=== PATIENT | male | born 1950 | race Caucasian/White ===

== ENCOUNTER → 2018-07-23 | Day surgery (SDC) | payer OTHER ==
[2018-07-22 17:16] LABS: BASOPHILS % 0.3 % (0.0-1.0); EOSINOPHILS # (AUTO) 0.1 (0.0-0.4); EOSINOPHILS % 1.8 % (0.0-6.0); HEMATOCRIT 40.9 % (38.2-49.6); HEMOGLOBIN 14.5 g/dL (14.0-18.0); LYMPHOCYTES # (AUTO) 1.7 (1.0-3.2); LYMPHOCYTES % 21.4 % (18.0-39.1); MEAN CORPUSCULAR HEMOGLOBIN 32.3 pg (28-32); MEAN CORPUSCULAR HGB CONC 35.5 g/dL (31-35); MEAN CORPUSCULAR VOLUME 91.1 fL (81-99); MONOCYTES # (AUTO) 0.7 (0.2-0.8); MONOCYTES % 9.2 % (4.4-11.3); NEUTROPHILS # (AUTO) 5.2 (2.1-6.9); NEUTROPHILS % 66.9 % (38.7-80.0); PLATELET COUNT 168 x10e3/uL (140-360); RED BLOOD COUNT 4.49 x10e6/uL (4.3-5.7); RED CELL DISTRIBUTION WIDTH 12.8 % (11.7-14.4)
[2018-07-22 17:28] LABS: INR 1.02; PROTHROMBIN TIME 14.3 seconds (11.9-14.5)
[2018-07-22 17:38] LABS: ALBUMIN 4.1 g/dL (3.5-5.0); ALBUMIN/GLOBULIN RATIO 1.2 (0.8-2.0); ANION GAP 15.8 mmol/L (8-16); CALCIUM 9.9 mg/dL (8.4-10.2); CHOL/HDL RATIO 5.5 (3.9-4.7); CREATININE, SERUM 2.28 mg/dL (0.72-1.25); POTASSIUM 3.8 mmol/L (3.5-5.1)
[2018-07-23] VITALS (8 sets, daily range): BP systolic 107–124; BP diastolic 59–78
[~2018-07-23] VITALS: Ht 172.7 cm; Wt 72.6 kg
[~2018-07-23] MED LIST: ALPRAZOLAM 0.5 MG TAB ONE; ANDROGEL 1.62% TOP; ATORVASTATIN CA20 MG PO; DIGOXIN125 MCG PO; DIPHENHYDRAMINE HCL 25 MG CAP ONE; FENTANYL CITRATE/PF 100MCG/2 ML INJ ONE; GLIMEPIRIDE2 MG PO; HEPARIN SOD (PORCINE) 1000 UNIT/ML 30ML ONE; HEPARIN SOD/SOD CHLORIDE 2,000 ML ONE; IOPAMIDOL 370 MG/ML 200 ML INFUS..BTL INJ ONE; IRON PO; LEVOTHYROXINE50 MCG PO; LIDOCAINE HCL 2% LOCAL 20 ML VIAL ONE; METOPROLOL SUCC25 MG PO; MIDAZOLAM HCL 2 MG/2 ML VIAL ONE; NIACIN500 M2 PO; NITROGLYCERIN/D5W 200 MCG/ML 250 ML ONE; OMEGA-31000 MG; OMEGA-31000 MG PO; POTASSIUM CHLO10 ME1 PO; SAVAYSA PO; SODIUM CHLORIDE 0.9% 1000ML 1,000 ML ONE; TORSEMIDE10 MG PO; VERAPAMIL HCL 2.5 MG/ML 2 ML VIAL ONE
--- NOTE | 2018-07-25 13:30 | Operative Report ---
DATE OF PROCEDURE: July 23, 2018 INDICATIONS: Coronary artery disease, abnormal stress test with apical ischemia. PROCEDURES PERFORMED 1. Left heart catheterization, selective coronary angiography. 2. Deployment of right groin Mynx closure device. COMPLICATIONS: None. RECOMMENDATIONS: Medical therapy. Access was obtained in the right femoral artery. A 6-Portuguese sheath was placed. Diagnostic coronary angiogram revealed codominant right coronary artery with minimal coronary artery disease in all coronary systems, between 10% and 20% luminal stenosis. No critical stenosis or occlusions were noted. Right groin was repaired using Mynx closure device. Patient discharged home same day. Job#: [id number]
== END | disposition home or self-care (01) ==
LOC: CATH LAB 09:39
PROVIDERS: ATTEND Internal Medicine Interventional Cardiology
DX: I25.118 Atherosclerotic heart disease of native coronary artery with other forms of angina pectoris (principal); R94.39 Abnormal result of other cardiovascular function study; I48.1 Persistent atrial fibrillation; Q21.3 Tetralogy of Fallot; E11.9 Type 2 diabetes mellitus without complications; E78.5 Hyperlipidemia, unspecified; Z01.812 Encounter for preprocedural laboratory examination; Z79.84 Long term (current) use of oral hypoglycemic drugs; Z86.19 Personal history of other infectious and parasitic diseases
CPT/HCPCS: 36415; 80053; 80061; 85025; 85610; 93454; C1769; J1644; J2001; J2250; J7030; Q9967

== ENCOUNTER 2019-12-06 17:10 | Inpatient (IN) | payer OTHER, MEDICARE ==
[~2019-12-06] VITALS: Ht 172.7 cm; Wt 66.8 kg
[~2019-12-06 17:10] MED LIST changes: -ALPRAZOLAM 0.5 MG TAB ONE; -DIPHENHYDRAMINE HCL 25 MG CAP ONE; -FENTANYL CITRATE/PF 100MCG/2 ML INJ ONE; -HEPARIN SOD (PORCINE) 1000 UNIT/ML 30ML ONE; -HEPARIN SOD/SOD CHLORIDE 2,000 ML ONE; -IOPAMIDOL 370 MG/ML 200 ML INFUS..BTL INJ ONE; -LIDOCAINE HCL 2% LOCAL 20 ML VIAL ONE; -MIDAZOLAM HCL 2 MG/2 ML VIAL ONE; -NITROGLYCERIN/D5W 200 MCG/ML 250 ML ONE; -SODIUM CHLORIDE 0.9% 1000ML 1,000 ML ONE; -VERAPAMIL HCL 2.5 MG/ML 2 ML VIAL ONE
[2019-12-06] MEDS ORDERED: SODIUM CHLORIDE 0.9% 500ML 500 ML IV ONE (18:45)
[2019-12-06 19:07] LABS: BASOPHILS % 0.3 % (0.0-1.0); EOSINOPHILS # (AUTO) 0.2 (0.0-0.4); EOSINOPHILS % 2.7 % (0.0-6.0); HEMATOCRIT 38.8 % (38.2-49.6); HEMOGLOBIN 12.6 g/dL (14.0-18.0); LYMPHOCYTES # (AUTO) 0.9 (1.0-3.2); LYMPHOCYTES % 12.4 % (18.0-39.1); MEAN CORPUSCULAR HEMOGLOBIN 30.5 pg (28-32); MEAN CORPUSCULAR HGB CONC 32.5 g/dL (31-35); MEAN CORPUSCULAR VOLUME 93.9 fL (81-99); MONOCYTES # (AUTO) 0.7 (0.2-0.8); MONOCYTES % 9.5 % (4.4-11.3); NEUTROPHILS # (AUTO) 5.2 (2.1-6.9); NEUTROPHILS % 74.7 % (38.7-80.0); PLATELET COUNT 158 x10e3/uL (140-360); RED BLOOD COUNT 4.13 x10e6/uL (4.3-5.7); RED CELL DISTRIBUTION WIDTH 13.5 % (11.7-14.4)
[2019-12-06 19:21] LABS: ALBUMIN 3.5 g/dL (3.5-5.0); ANION GAP 15.8 mmol/L (8-16); CALCIUM 9.5 mg/dL (8.4-10.2); CREATININE, SERUM 2.06 mg/dL (0.72-1.25); POTASSIUM 3.8 mmol/L (3.5-5.1)
[2019-12-06 19:28] LABS: CREATINE KINASE MB 2.4 ng/mL (0-5.0)
--- NOTE | 2019-12-06 19:34 | Diagnostic Imaging Report ---
Examination: Single AP view of the chest. COMPARISON: Multi lead cardiac device. INDICATION: Dyspnea DISCUSSION: Lines/tubes: None. Lungs: Interstitial edema. Pleura: No pleural effusion or pneumothorax. Heart and mediastinum: Cardiomegaly. Vascular stent. Bones and soft tissues: No acute bony abnormalities. IMPRESSION: 1. Cardiomegaly with interstitial edema Signed by: Dr. Micheal Phillips M.D. on 12/06/2019 7:32 PM
[2019-12-06] MEDS ORDERED: SODIUM CHLORIDE FLUSH 10 ML SYR INJ PRN (20:00)
[2019-12-06] MEDS ORDERED: DEXTROSE 50% SYRINGE 50 ML IV PRN (20:00)
--- OUTSIDE RECORDS SUMMARY | 2019-12-06 20:28 | XMS REPORT ---
Author Author [facility] Address Unknown Phone Unavailable Care Team Providers Care Stewarding Supervisor Name Role Phone Johny ALLISON Unavailable Unavailable Problems This patient has no known problems. Allergies, Adverse Reactions, Alerts This patient has no known allergies or adverse reactions. Medications This patient has no known medications. Results Test Description Test Time Test Comments Text Results Atomic Results Result Comments CHEST SINGLE (PORTABLE) 2019-12-06 19:31:00 [place] [address] Patient Name: MICKY CHAPPELL MR #: [id number] : 1950 Age/Sex: 69/M Req #: [id number] Adm Physician: Ordered by: LANDY ALLISON MD Report #: [id number] Location: ER Room/Bed: Procedure: [id number] DX/CHEST SINGLE (PORTABLE) Exam Date: Exam Time: REPORT STATUS: Signed Examination: Single AP view of the chest. COMPARISON: Multi lead cardiac device. INDICATION: Dyspnea DISCUSSION: Lines/tubes: None. Lungs: Interstitial edema. Pleura: No pleural effusion or pneumothorax. Heart and mediastinum: Cardiomegaly. Vascular stent. Bones and soft tissues: No acute bony abnormalities. IMPRESSION: 1. Cardiomegaly with interstitial edema Signed by: Dr. Eric John M.D. on 12/06/2019 7:32 PM Dictated By: ERIC JOHN MD 31 Transcribed By: ROMELIA on 12/06/191931 COPY TO: LANDY ALLISON MD
[2019-12-06 21:30] LABS: INR 1.92; PROTHROMBIN TIME 22.7 seconds (11.9-14.5)
[2019-12-06 21:31] LABS: PARTIAL THROMBOPLASTIN TIME 42.4 seconds (23.8-35.5)
[2019-12-06] MEDS: INSULIN REGULAR, HUMAN 100 UNIT/1 ML 3ML VIAL SQ SCH (22:03)
[2019-12-06] MEDS: FUROSEMIDE INJ 10 MG/ML 4 ML VIAL IV SCH ×2 (22:12→22:27)
[2019-12-07 08:02] LABS: BASOPHILS % 0.5 % (0.0-1.0); EOSINOPHILS # (AUTO) 0.3 (0.0-0.4); EOSINOPHILS % 2.9 % (0.0-6.0); HEMATOCRIT 39.2 % (38.2-49.6); HEMOGLOBIN 12.9 g/dL (14.0-18.0); LYMPHOCYTES # (AUTO) 1.6 (1.0-3.2); MEAN CORPUSCULAR HEMOGLOBIN 30.4 pg (28-32); MEAN CORPUSCULAR HGB CONC 32.9 g/dL (31-35); MEAN CORPUSCULAR VOLUME 92.2 fL (81-99); MONOCYTES # (AUTO) 0.9 (0.2-0.8); MONOCYTES % 10.8 % (4.4-11.3); NEUTROPHILS # (AUTO) 5.8 (2.1-6.9); NEUTROPHILS % 67.3 % (38.7-80.0); PLATELET COUNT 160 x10e3/uL (140-360); RED BLOOD COUNT 4.25 x10e6/uL (4.3-5.7); RED CELL DISTRIBUTION WIDTH 13.7 % (11.7-14.4)
[2019-12-07] MEDS: INSULIN REGULAR, HUMAN 100 UNIT/1 ML 3ML VIAL SQ SCH ×4 (08:07→21:00)
[2019-12-07 08:27] LABS: CREATINE KINASE MB 2.7 ng/mL (0-5.0)
[2019-12-07 08:45] LABS: ALBUMIN 3.6 g/dL (3.5-5.0); ANION GAP 19.1 mmol/L (8-16); CALCIUM 9.6 mg/dL (8.4-10.2); POTASSIUM 3.1 mmol/L (3.5-5.1)
[2019-12-07] MEDS: FUROSEMIDE INJ 10 MG/ML 4 ML VIAL IV SCH (09:42)
[2019-12-07 13:10] VITALS: BP 114/70
[2019-12-07 13:24] VITALS: BP 114/70
[2019-12-07] MEDS ORDERED: TRULICITY0.75 MG/0. SQ (13:48)
[2019-12-07] MEDS ORDERED: ONE DAILY MEN'1 EACH PO (13:48)
[2019-12-07 16:00] VITALS: BP 111/70
[2019-12-07] MEDS ORDERED: POTASSIUM CHLORIDE 10MEQ EA PO NR (16:30)
[2019-12-07 17:17] LABS: CREATINE KINASE MB 2.9 ng/mL (0-5.0)
--- NOTE | 2019-12-07 18:34 | Diagnostic Imaging Report ---
EXAMINATION: CHEST SINGLE (PORTABLE) INDICATION: Fluid overload ^PULM EDEMA ^[id number] ^[id number] COMPARISON: December 06, 2019 FINDINGS: Lines/tubes: None. Lungs: Interstitial edema. Pleura: No pleural effusion or pneumothorax. Heart and mediastinum: Cardiomegaly. Vascular stent. Left chest cardiac device. Bones and soft tissues: No acute bony abnormalities. Degenerative changes in the thoracic spine. IMPRESSION: 1. Cardiomegaly with interstitial edema essentially unchanged. Signed by: Dr. Cody Alvarado M.D. on 12/07/2019 6:31 PM
[2019-12-07 20:00] VITALS: BP 112/71
[2019-12-07] MEDS ORDERED: FUROSEMIDE INJ 10 MG/ML 4 ML VIAL IV SCH (21:00)
[2019-12-07] MEDS ORDERED: TORSEMIDE 10 MG TAB PO SCH (21:00)
--- NOTE | 2019-12-07 23:57 | History and Physical ---
PRIMARY CARE PHYSICIAN: Dr. Lorenz. CAREER DEVELOPER: Dr. Murdock. CHIEF COMPLAINT: Shortness of breath and generalized weakness x2 weeks. HISTORY OF PRESENT ILLNESS: This is a 69-year-old male with past medical history of chronic systolic CHF, CAD, atrial fibrillation, tetralogy, high cholesterol, diabetes type 2, CKD 3, and hypothyroidism presented to the ER with complaints of shortness of breath. He reports he has been taking his medications as prescribed, but has noticed that in the past month or so he has been feeling short of breath, increasing in severity. He reported having mild dry cough and increased shortness of breath that started a week ago. He denies any fever, chills, diaphoresis, chest pain, hemoptysis. He has no bilateral lower extremity swelling, but has some wheezing and crackles in the lower bases of his lungs. He went to his PCP and was instructed to come to the ER for further evaluation. In the ER, BNP was 664. Cardiac enzymes negative. Chest x-ray shows cardiomegaly with interstitial edema. He was started on IV Lasix, which seems to be helping. PAST MEDICAL HISTORY: 1. Systolic congestive heart failure with defibrillator in place. 2. CAD. 3. Atrial fibrillation. 4. High cholesterol. 5. Hypothyroidism. 6. Diabetes type 2. 7. CKD 3. SURGICAL HISTORY: 1. He has had a tetralogy repair at the age of 33 years old. 2. Bypass surgery. 3. Ablation in 2009. 4. Cholecystectomy. 5. Tonsillectomy. FAMILY MEDICAL HISTORY: Both mother and father of lung cancer, reports mother also has diabetes. SOCIAL HISTORY: He denies any tobacco, alcohol, or illicit drug use. ALLERGIES: NO KNOWN DRUG ALLERGIES. REVIEW OF SYSTEMS: GENERAL: Fatigue. HEENT: No head trauma. LUNGS: Shortness of breath and dry cough. CARDIOVASCULAR: No chest pain. GI: No nausea or vomiting. NEURO: Generalized weakness. MUSCULOSKELETAL: Moves all extremities. No edema. SKIN: No rash. PHYSICAL EXAMINATION: VITAL SIGNS: Temperature 97.2, pulse is 70, respirations 20, blood pressure 111/70, pulse ox is 96% on room air. GENERAL: No acute distress, fatigue. HEENT: Normocephalic, atraumatic. NECK: Supple. LUNGS: Clear with decreased breath sounds and some crackles. CARDIOVASCULAR: Regular rate and rhythm. Defibrillator in place. GI: Soft and nontender. NEUROLOGIC: Alert, awake, and oriented x3. MUSCULOSKELETAL: Moves all extremities. SKIN: Dry. EXTREMITIES: No edema. Palpable pulses. PSYCH: Calm. LABORATORY DATA: WBC 8.67, hemoglobin 12.9, hematocrit 39.2, platelets 160. Sodium 143, potassium 3.1, CO2 of 26, anion gap 19.1. BUN is 26, creatinine 2.0. Estimated GFR is 33. AST 28, ALT 26, alkaline phosphate 244. Troponin x3 negative. BNP is 664. PT 22.7, INR 1.92, PTT 42.4. IMAGING: Chest x-ray shows cardiomegaly with interstitial edema. IMPRESSION: 1. Systolic congestive heart failure with exacerbation, acute with troponin x3 were negative, resume home medication, Lasix IV b.i.d. Echo has been ordered. We will consult Cardiology. 2. History of atrial fibrillation, rate controlled, continue current medications. Reports takes Savaysa for cerebrovascular accident prophylaxis. 3. High cholesterol. Continue on statin. 4. Hypokalemia. We will replace and recheck. 5. Diabetes type 2. Sliding scale insulin coverage. 6. Chronic kidney disease 3. Creatinine 2.0. We will continue to monitor closely. 7. Hypothyroidism. We will resume home levothyroxine. 8. Deep venous thrombosis prophylaxis. We will start Lovenox. PLAN: To continue current treatments. Continue IV Lasix and repeat chest x-ray. Further recommendation per Cardiology. Dictated by ARLYN Cardenas Jeniffer Retana MD MY/MODL /[id number]
[2019-12-08] VITALS (7 sets, daily range): BP systolic 108–140; BP diastolic 64–73
[2019-12-08] MEDS: LEVOTHYROXINE SODIUM 50 MCG TAB PO SCH (06:00)
[2019-12-08] MEDS: FUROSEMIDE INJ 10 MG/ML 4 ML VIAL IV SCH ×3 (06:00→22:00)
[2019-12-08] MEDS: INSULIN REGULAR, HUMAN 100 UNIT/1 ML 3ML VIAL SQ SCH ×4 (07:30→21:00)
[2019-12-08] MEDS: OMEGA 3 POLYUNSAT FATTY ACIDS 1000 MG SOFTGEL PO SCH (08:59)
[2019-12-08] MEDS: POTASSIUM CHLORIDE 10MEQ EA PO SCH ×2 (09:00→16:35)
[2019-12-08] MEDS ORDERED: SAVAYSA 30 MG PO SCH (09:00)
[2019-12-08] MEDS: METOPROLOL SUCCINATE 25 MG TAB XL PO SCH (09:00)
[2019-12-08] MEDS ORDERED: ENOXAPARIN SOD INJ 40 MG/0.4 ML SYR SC SCH (09:00)
[2019-12-08] MEDS: ATORVASTATIN 20 MG TAB PO SCH (09:00)
--- NOTE | 2019-12-08 18:31 | Progress Note ---
DATE: 12/08/2019 CONSULTING PHYSICIAN: Dr. Lizama with Cardiology. CHIEF COMPLAINT: Congestive heart failure exacerbation. SUBJECTIVE: Sitting up in bed with O2 via nasal cannula. Reports shortness of breath is improving some, still having to sleep in high Espinoza's position. Reports nonproductive cough throughout the night. OBJECTIVE: VITAL SIGNS: Temperature 97.0, pulse is 75, blood pressure 140/67, respirations 20, and O2 saturations 93%. GENERAL: No acute distress. NECK: Supple. LUNGS: Decreased breath sounds with some crackles. HEENT: Normocephalic and atraumatic. CARDIOVASCULAR: Regular rate and rhythm. ABDOMEN: Soft and nontender. EXTREMITIES: Moves all extremities. No edema. NEUROLOGIC: Alert, awake, and oriented x3. LABORATORY DATA: Sodium 143, potassium 3.1, chloride 101, CO2 26, creatinine 2.0, and BUN is 26. White count is 8.67, hemoglobin 12.9, hematocrit 39.2, and platelet 160. PT 22, PTT 42, and INR 1.91. IMPRESSION: 1. Acute systolic congestive heart failure with exacerbation. Troponin x3 were negative, we will increase Lasix to IV t.i.d. Pending echo. Cardiology has been consulted. 2. History of atrial fibrillation. Rate is controlled. We will continue on beta blockers and Savaysa for cerebrovascular accident prophylaxis. 3. Hypokalemia. We will replace. 4. High cholesterol. Continue on statin. 5. Diabetes type 2. Sliding scale insulin coverage. 6. Chronic kidney disease, 3. Stable. We will continue to monitor. 7. Hypothyroidism. We will continue levothyroxine. 8. Deep vein thrombosis prophylaxis on Savaysa. PLAN: To continue IV Lasix t.i.d., we will repeat labs and chest x-ray in the morning. Dictated by ARLYN Cardenas Jeniffer Retana MD MY/MODL /[id number]
--- NOTE | 2019-12-08 18:46 | Consultation ---
DATE OF CONSULTATION: 12/08/2019 Cardiology Consultation HISTORY OF PRESENT ILLNESS: This is a 69-year-old man with a history of atrial fibrillation, chronic systolic congestive heart failure status post implantable cardioverter-defibrillator, hypertension, and hyperlipidemia, who presented to the emergency department with palpitations and shortness of breath. He reports compliance with his diuretics, however, states that his primary care provider has noted his atrial fibrillation to be poorly controlled. The patient cannot provide me the exact details of his presenting symptoms or his past medical history. He was noted to be in congestive heart failure and initiated on intravenous diuretics. REVIEW OF SYSTEMS: A 12-point review of system was conducted, is negative except as stated above in the HPI. PAST MEDICAL HISTORY: As stated above in the HPI. PAST SURGICAL HISTORY: Implantable cardioverter-defibrillator placement. FAMILY HISTORY: Noncontributory. SOCIAL HISTORY: No illicit drug, alcohol, or tobacco use. ALLERGIES: NO KNOWN DRUG ALLERGIES. MEDICATIONS: See medication reconciliation form. PHYSICAL EXAMINATION: VITAL SIGNS: He is afebrile. Heart rate and blood pressure are stable. Oxygen saturation is normal on 2 L nasal cannula. GENERAL: Well-appearing, well built, in no apparent distress. Alert and oriented x3. HEAD: Normocephalic and atraumatic. EYES: The extraocular muscles are intact. Conjunctivae are clear. NECK: No JVD. No bruits. CARDIOVASCULAR: He is irregularly irregular. Normal rate. Systolic murmur at the left sternal border. LUNGS: Clear to auscultation. ABDOMEN: Soft, nontender, and nondistended. EXTREMITIES: No clubbing, cyanosis, or edema. VASCULAR: 2+ pulses. SKIN: Warm, dry, and intact. LABORATORY DATA: Reviewed. IMPRESSION: 1. Ayzcj-nn-ktfjjdq systolic congestive heart failure. 2. Presence of cardioverter-defibrillator. 3. Atrial fibrillation. 4. Hypertension. RECOMMENDATIONS: Continue current cardiovascular medications including intravenous diuresis. He is on edoxaban for anticoagulation. Maintain normal electrolyte values. Monitor creatinine and urinary output on IV diuretics. We will have his implantable cardioverter-defibrillator interrogated, which is a [employer] device. Eusebio Richardson DO BM/MODL /[id number]
[2019-12-09] VITALS: BP 121/58
[2019-12-09 04:00] VITALS: BP 122/57
[2019-12-09 05:10] LABS: BASOPHILS % 0.5 % (0.0-1.0); EOSINOPHILS # (AUTO) 0.3 (0.0-0.4); EOSINOPHILS % 3.5 % (0.0-6.0); HEMATOCRIT 36.8 % (38.2-49.6); HEMOGLOBIN 11.8 g/dL (14.0-18.0); LYMPHOCYTES # (AUTO) 1.6 (1.0-3.2); LYMPHOCYTES % 20.7 % (18.0-39.1); MEAN CORPUSCULAR HGB CONC 32.1 g/dL (31-35); MEAN CORPUSCULAR VOLUME 93.6 fL (81-99); MONOCYTES # (AUTO) 0.7 (0.2-0.8); MONOCYTES % 9.8 % (4.4-11.3); NEUTROPHILS # (AUTO) 4.9 (2.1-6.9); NEUTROPHILS % 65.2 % (38.7-80.0); PLATELET COUNT 151 x10e3/uL (140-360); RED BLOOD COUNT 3.93 x10e6/uL (4.3-5.7); RED CELL DISTRIBUTION WIDTH 13.1 % (11.7-14.4)
[2019-12-09 05:30] LABS: ANION GAP 16.3 mmol/L (8-16); CREATININE, SERUM 2.01 mg/dL (0.72-1.25); POTASSIUM 3.3 mmol/L (3.5-5.1)
--- NOTE | 2019-12-09 05:53 | Diagnostic Imaging Report ---
EXAMINATION: CHEST SINGLE (PORTABLE) INDICATION: CHF. Pulmonary edema. COMPARISON: December 07, 2019 at 1815 hours. FINDINGS: Lines/tubes: None. Dual-lead left-sided cardiac pacemaker is unchanged in position. Lungs: Bilateral pulmonary venous congestion and interstitial edema. Interval increase in density throughout the chest bilaterally consistent with increasing edema. Pleura: Bilateral small pleural effusions. No pneumothorax. Heart and mediastinum: Cardiomegaly. Vascular stent again observed. Bones and soft tissues: No acute bony abnormalities. Degenerative changes in the thoracic spine. IMPRESSION: 1. Findings consistent with mild increase in findings consistent with decompensated congestive heart failure. Signed by: Dr. Bulmaro Moreau M.D. on 12/09/2019 5:50 AM
[2019-12-09] MEDS: FUROSEMIDE INJ 10 MG/ML 4 ML VIAL IV SCH ×2 (06:00→14:00)
[2019-12-09] MEDS: LEVOTHYROXINE SODIUM 50 MCG TAB PO SCH (06:00)
[2019-12-09] MEDS: INSULIN REGULAR, HUMAN 100 UNIT/1 ML 3ML VIAL SQ SCH ×3 (07:30→16:30)
[2019-12-09 07:49] VITALS: BP 115/55
[2019-12-09 07:51] VITALS: BP 115/55
[2019-12-09] MEDS: POTASSIUM CHLORIDE 10MEQ EA PO SCH ×2 (08:38→16:56)
[2019-12-09] MEDS: OMEGA 3 POLYUNSAT FATTY ACIDS 1000 MG SOFTGEL PO SCH (08:38)
[2019-12-09] MEDS: ATORVASTATIN 20 MG TAB PO SCH (08:38)
[2019-12-09] MEDS: METOPROLOL SUCCINATE 25 MG TAB XL PO SCH (08:39)
[2019-12-09] MEDS ORDERED: POTASSIUM CHLORIDE 10MEQ EA PO ONE (08:45)
[2019-12-09] MEDS ORDERED: SAVAYSA 30 MG PO SCH (09:00)
[2019-12-09 11:41] VITALS: BP 113/60
[2019-12-09 15:16] VITALS: BP 118/61
[2019-12-09] MEDS ORDERED: FUROSEMIDE40 MG PO (15:22)
--- NOTE | 2019-12-09 19:56 | Progress Note ---
DATE: 12/09/2019 Cardiology Progress Note. SUBJECTIVE: The patient feeling better, walked around without significant shortness of breath. No chest pain. OBJECTIVE: VITAL SIGNS: Temperature is 96.8, heart rate 72, respirations are 18, blood pressure is 118/61, oxygen saturation 96% on room air. GENERAL: Well appearing, no apparent distress. CARDIOVASCULAR: Regular rate and rhythm with ectopy. LUNGS: Mildly diminished breath sounds at bases with scattered rales. ABDOMEN: Soft, nontender, nondistended. EXTREMITIES: No edema. CARDIOVASCULAR MEDICATIONS: Reviewed. LABORATORY DATA: Reviewed, hemoglobin 11.8 and creatinine is 2. TELEMETRY: Monitoring revealed ventricular paced rhythm with one premature ventricular complex. This was used for diagnosis of nonsustained ventricular tachycardia. IMPRESSION: 1. Iwsyh-nf-zxdcams systolic congestive heart failure. 2. Presence of implantable cardioverter-defibrillator. 3. Paroxysmal atrial fibrillation. 4. Premature ventricular complexes. 5. Hypertension. RECOMMENDATIONS: Continue current cardiovascular medications. Can switch to oral Lasix 40 mg p.o. b.i.d. He is on edoxaban for anticoagulation. His ICD was interrogated with normal function. The patient may be discharged from a cardiovascular standpoint with outpatient followup. DO DOT Slater/PRISCILLAL /[id number]
--- NOTE | 2019-12-11 04:47 | Discharge Summary ---
PRIMARY CARE PHYSICIAN: Dr. Lorenz. FINAL DIAGNOSES: 1. Acute systolic congestive heart failure with exacerbation. 2. History of atrial fibrillation. 3. Hypokalemia. 4. High cholesterol. 5. Diabetes type 2. 6. Chronic kidney disease, 3. 7. Hypothyroidism. CONSULTANTS: Dr. Lizama with Cardiology. PROCEDURES: None. HISTORY: Per HPI. HOSPITAL COURSE: This is a 69-year-old male with past medical history of chronic systolic congestive heart failure, PAF, hypertension, diabetes, and CKD, presented with increased shortness of breath with exertion and unable to lay flat in bed. He was started on IV Lasix for aggressive diuresis. Chest x-ray showed pulmonary edema. He continued to improve with his shortness of breath. Cardiology was consulted for evaluation. I advised to change the home torsemide to Lasix p.o. b.i.d. Otherwise, dyspnea is much improved. PHYSICAL EXAMINATION: VITAL SIGNS: Temperature 95.1, pulse is 73, respirations 16, blood pressure 113/60, and pulse ox is 96% on room air. GENERAL: In no acute distress. NECK: Supple and midline. LUNGS: With decreased breath sounds. HEENT: Normocephalic, atraumatic. CARDIOVASCULAR: Regular rate and rhythm. ABDOMEN: Soft and nontender. EXTREMITIES: Moves all extremities with no edema. NEUROLOGIC: Alert, awake, oriented x3. SKIN: Dry and intact. CONDITION AT DISCHARGE: Stable and improved. DISCHARGE MEDICATIONS: See medication reconciliation list. FOLLOWUP: Follow up with PCP and Cardiology in 1-2 weeks. TIME SPENT: Around 32 minutes. Dictated by ARLYN Cardenas Jeniffer Retana MD MY/MODL /[id number] cc: Dr. Lorenz
== END 2019-12-09 17:46 | disposition home or self-care (01) | DRG 291 ==
LOC: ER 17:10 → ERHOLD 19:59 → MED/SURG2 12-07 13:21 → OBSVTOIN 12-08 15:56
PROVIDERS: ADMIT Internal Medicine; ATTEND Internal Medicine
DX: I13.0 Hypertensive heart and chronic kidney disease with heart failure and stage 1 through stage 4 chronic kidney disease, or unspecified chronic kidney disease (principal); I50.23 Acute on chronic systolic (congestive) heart failure; N18.3 Chronic kidney disease, stage 3 (moderate); E11.22 Type 2 diabetes mellitus with diabetic chronic kidney disease; Z79.4 Long term (current) use of insulin; E78.00 Pure hypercholesterolemia, unspecified; E03.9 Hypothyroidism, unspecified; I25.10 Atherosclerotic heart disease of native coronary artery without angina pectoris; I48.91 Unspecified atrial fibrillation; Z79.01 Long term (current) use of anticoagulants; E87.6 Hypokalemia; I49.3 Ventricular premature depolarization
CPT/HCPCS: 36415; 71045; 80048; 80053; 82550; 82553; 82948; 83880; 84484; 85025; 85610; 85730; 93005; 93306; 97139; 99284; G0378; J1940

== ENCOUNTER 2020-01-04 18:15 | Inpatient (IN) | payer OTHER, MEDICARE ==
[~2020-01-04] VITALS: Ht 172.7 cm; Wt 73.9 kg
[~2020-01-04 18:15] MED LIST changes: +FUROSEMIDE40 MG PO; +ONE DAILY MEN'1 EACH PO; +TRULICITY0.75 MG/0. SQ
[2020-01-04 19:00] LABS: BASOPHILS % 0.5 % (0.0-1.0); EOSINOPHILS # (AUTO) 0.2 (0.0-0.4); EOSINOPHILS % 3.2 % (0.0-6.0); HEMATOCRIT 41.3 % (38.2-49.6); HEMOGLOBIN 13.2 g/dL (14.0-18.0); LYMPHOCYTES % 15.6 % (18.0-39.1); MEAN CORPUSCULAR HEMOGLOBIN 30.3 pg (28-32); MEAN CORPUSCULAR VOLUME 94.9 fL (81-99); MONOCYTES # (AUTO) 0.7 (0.2-0.8); MONOCYTES % 10.5 % (4.4-11.3); NEUTROPHILS # (AUTO) 4.6 (2.1-6.9); NEUTROPHILS % 69.7 % (38.7-80.0); PLATELET COUNT 173 x10e3/uL (140-360); RED BLOOD COUNT 4.35 x10e6/uL (4.3-5.7); RED CELL DISTRIBUTION WIDTH 14.6 % (11.7-14.4)
[2020-01-04 19:08] LABS: INR 1.6; PROTHROMBIN TIME 20.2 seconds (11.9-14.5)
[2020-01-04 19:09] LABS: PARTIAL THROMBOPLASTIN TIME 37.8 seconds (23.8-35.5)
[2020-01-04 19:16] LABS: ALBUMIN 3.4 g/dL (3.5-5.0); ALBUMIN/GLOBULIN RATIO 0.9 (0.8-2.0); ANION GAP 12.8 mmol/L (8-16); CREATININE, SERUM 2.34 mg/dL (0.72-1.25); MAGNESIUM 2.3 MG/DL (1.3-2.1); POTASSIUM 4.8 mmol/L (3.5-5.1)
[2020-01-04 19:22] LABS: CREATINE KINASE MB 7.3 ng/mL (0-5.0)
--- NOTE | 2020-01-04 20:03 | Diagnostic Imaging Report ---
EXAMINATION: CHEST SINGLE (PORTABLE) INDICATION: ^ERMD ORDER COMPARISON: 12/09/2019 FINDINGS: Lines/tubes: Dual-lead left-sided cardiac pacemaker is unchanged in position. Lungs: Bilateral pulmonary venous congestion and interstitial edema unchanged. Pleura: Bilateral small pleural effusions,. No pneumothorax. Heart and mediastinum: Cardiomegaly. Vascular stent again observed. Bones and soft tissues: No acute bony abnormalities. Degenerative changes in the thoracic spine. IMPRESSION: Cardiomegaly with pulmonary edema, unchanged. Signed by: Clay Laurent MD on 01/04/2020 8:00 PM
[2020-01-04] MEDS ORDERED: DEXTROSE 50% SYRINGE 50 ML IV PRN (21:00)
[2020-01-04] MEDS ORDERED: SODIUM CHLORIDE FLUSH 10 ML SYR IV PRN (21:00)
[2020-01-04] MEDS ORDERED: FUROSEMIDE INJ 10 MG/ML 4 ML VIAL IV ONE (21:00)
[2020-01-04] MEDS: INSULIN REGULAR, HUMAN 100 UNIT/1 ML 3ML VIAL SQ SCH (23:47)
[2020-01-05 02:39] LABS: CLARITY,URINE CLEAR (CLEAR); COLOR,URINE YELLOW (YELLOW)
[2020-01-05 02:40] LABS: KETONES,URINE NEGATIVE (NEGATIVE); LEUKOCYTE ESTERASE ,URINE NEGATIVE (NEGATIVE); NITRITE,URINE NEGATIVE (NEGATIVE); PROTEIN,URINE DIPSTICK NEGATIVE (NEGATIVE)
[2020-01-05 02:41] LABS: BILIRUBIN,URINE NEGATIVE (NEGATIVE); URINE UROBILINOGEN 8 mg/dL (0.2 - 1)
[2020-01-05 02:55] LABS: BACTERIA,URINE RARE /HPF; EPITHELIAL CELLS,URINE RARE /LPF; RBC,URINE 0-5 /HPF (0-5); WBC,URINE (MAN) 0-5 /HPF (0-5)
[2020-01-05 02:58] LABS: CREATINE KINASE MB 5.4 ng/mL (0-5.0)
[2020-01-05 07:38] LABS: BASOPHILS % 0.5 % (0.0-1.0); EOSINOPHILS # (AUTO) 0.2 (0.0-0.4); EOSINOPHILS % 3.7 % (0.0-6.0); HEMOGLOBIN 12.9 g/dL (14.0-18.0); LYMPHOCYTES # (AUTO) 1.3 (1.0-3.2); LYMPHOCYTES % 20.6 % (18.0-39.1); MEAN CORPUSCULAR HEMOGLOBIN 30.1 pg (28-32); MEAN CORPUSCULAR HGB CONC 31.5 g/dL (31-35); MEAN CORPUSCULAR VOLUME 95.6 fL (81-99); MONOCYTES # (AUTO) 0.6 (0.2-0.8); MONOCYTES % 9.9 % (4.4-11.3); NEUTROPHILS # (AUTO) 4.2 (2.1-6.9); PLATELET COUNT 175 x10e3/uL (140-360); RED BLOOD COUNT 4.29 x10e6/uL (4.3-5.7); RED CELL DISTRIBUTION WIDTH 14.8 % (11.7-14.4)
[2020-01-05] MEDS: INSULIN REGULAR, HUMAN 100 UNIT/1 ML 3ML VIAL SQ SCH ×4 (07:52→21:00)
[2020-01-05 08:04] LABS: ALBUMIN 3.3 g/dL (3.5-5.0); ALBUMIN/GLOBULIN RATIO 0.9 (0.8-2.0); CALCIUM 9.1 mg/dL (8.4-10.2); CREATININE, SERUM 2.11 mg/dL (0.72-1.25)
[2020-01-05 08:14] LABS: CREATINE KINASE MB 3.6 ng/mL (0-5.0)
[2020-01-05] MEDS: FUROSEMIDE INJ 10 MG/ML 4 ML VIAL IV SCH ×2 (08:15→22:04)
--- NOTE | 2020-01-05 11:41 | Diagnostic Imaging Report ---
EXAM: US ABDOMEN COMPLETE DATE: 01/05/2020 12:00 AM INDICATION: Elevated bilirubin, ascites COMPARISON: None TECHNIQUE: Transverse and longitudinal javier scale and color doppler sonographic images of the upper abdomen were obtained. FINDINGS: LIVER 14.6 cm in the right midclavicular line. Normal echogenicity of the liver with normal contour, no masses. SPLEEN 14.1 cm in maximum diameter. Normal echogenicity, no masses. GALLBLADDER Status post cholecystectomy. BILE DUCTS No intra nor extra-hepatic biliary dilation. Common bile duct measures 3mm PANCREAS: Visualized portions are normal. RIGHT KIDNEY: 10.7 cm Echogenicity: Normal Collecting System: No hydronephrosis Stones: None Cyst/Mass: None LEFT KIDNEY: 10.9 cm Echogenicity: Normal Collecting System: No hydronephrosis Stones: None Cyst/Mass: None VESSELS: Aorta: Visualized portions are within normal size limits Inferior Vena Cava: Visualized portions are normal Main Portal Vein: 1.0 cm, normal size with hepatopetal flow. FREE FLUID: Small volume ascites in the upper abdomen. IMPRESSION: Status post cholecystectomy. Splenomegaly. Small volume ascites. Signed by: Rohan Mcmahon MD on 01/05/2020 11:38 AM
--- NOTE | 2020-01-05 16:29 | Diagnostic Imaging Report ---
EXAMINATION: CHEST SINGLE (PORTABLE) INDICATION: Pulmonary edema COMPARISON: Multiple prior chest radiograph, most recently 01/04/2020 FINDINGS: LINES/TUBES:Left chest AICD. EKG leads overlie the chest. LUNGS:The lungs are moderately inflated. There is perihilar fullness and indistinctness of the pulmonary vasculature. PLEURA:No pleural effusion or pneumothorax. MEDIASTINUM:Cardiomediastinal silhouette is stably enlarged. BONES/SOFT TISSUES:No acute osseous injury. ABDOMEN:No free air under the diaphragm. IMPRESSION: Unchanged cardiomegaly and pulmonary edema. Signed by: Rohan Mcmahon MD on 01/05/2020 4:27 PM
[2020-01-05] MEDS: POTASSIUM CHLORIDE 10MEQ EA PO SCH (17:05)
[2020-01-05 17:45] LABS: CREATINE KINASE MB 3.8 ng/mL (0-5.0)
--- NOTE | 2020-01-05 18:54 | Consultation ---
DATE OF CONSULTATION: 01/05/2020 Cardiology Consultation REQUESTING PHYSICIAN: Dr. Retana. REASON FOR CONSULTATION: Congestive heart failure. 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 The patient reports he had been doing well since his last visit in the clinic. States his breathing had been improving and he had been returning to his normal state of health until 3 days ago when he noticed abdominal bloating. He did not think much of this and simply increased the size of his pants. The following day, he noticed he had significant abdominal swelling from the chest down to his lower extremities and when he weighed himself, he noted he was 13 pounds heavier than his baseline. He denied any chest pain, shortness of breath, palpitations, orthopnea, or PND. PHYSICAL EXAMINATION: VITAL SIGNS: Temperature 97.6 degrees, pulse 77, respiratory rate 18, blood pressure 99/81, and oxygen saturation 100%. GENERAL: Well-developed, well-nourished man. In no acute distress. HEENT: Normocephalic and atraumatic. Pupils equal. No scleral icterus. NECK: Supple. No thyroid or cervical lymphadenopathy. No carotid bruits. LUNGS: Crackles at bilateral bases, otherwise clear to auscultation. CARDIOVASCULAR: Normal rate. Regular rhythm. Systolic murmur at the left sternal border. ABDOMEN: Soft and nontender. EXTREMITIES: 2+ pitting edema. NEUROLOGIC: Nonfocal. SKIN: Dry and intact. LABORATORY DATA: WBC 6.46, hemoglobin 12.9, hematocrit 41, and platelets 175. Sodium 141, potassium 4, chloride 104, CO2 30, BUN 43, and creatinine 2.11. EKG, electronic ventricular pacemaker. IMPRESSION: 1. Zijtt-wk-uonnkff systolic heart failure. 2. History of tetralogy of Fallot, status post repair. 3. Scar-related ventricular tachycardia, status post AICD. 4. Atrial fibrillation. 5. Status post transcatheter aortic valve replacement. 6. Hyperlipidemia. 7. Diabetes mellitus. RECOMMENDATIONS: The patient is diuresing well. Continue Lasix 40 IV b.i.d. Continue home cardiac medications otherwise. Monitor on telemetry while admitted. We will review his last echocardiogram, which was done one month prior. He is planned for nuclear stress test as an outpatient for preoperative evaluation. No further cardiac evaluation is indicated while admitted. Thank you for this consult. We will continue to follow. Debi Raza MD ABS/MODL /[id number]
--- NOTE | 2020-01-05 21:10 | NUR ---
PT ARRIVED BY WHEELCHAIR TO ROOM 102. PT IS AAOX3, RR EVEN AND NON-LABORED, ON ROOM AIR. NO S/SX OF DISTRESS NOTED. PT REQUESTING A BATH. ORIENTED PT TO HOSPITAL ROOM, CALL LIGHT AND BED CONTROLS. LEFT PT SITTING IN RECLINER, CALL LIGHT WITHIN REACH.
[2020-01-05 21:15] VITALS: BP 108/63
[2020-01-05] MEDS: ATORVASTATIN 20 MG TAB PO SCH (22:04)
--- NOTE | 2020-01-05 22:25 | History and Physical ---
PRIMARY CARE PHYSICIAN: Dr. Lorenz at [facility]. SUBWAY CONDUCTOR: Jose Lizama MD CHIEF COMPLAINT: Generalized edema. HISTORY OF PRESENT ILLNESS: This is a 69-year-old male with past medical history of hypertension, high cholesterol, systolic CHF, CAD status post bypass, atrial fibrillation, diabetes, hypothyroidism, presented to the ER with complaints of increased edema. He was recently discharged from this hospital after being treated for acute systolic congestive heart failure exacerbation. He reports was taking Lasix as he was told twice a day with not much urine output, so went to see his PCP and was advised to start taking his torsemide, which was working fine up until about 3 days ago. He reports was noting that his legs were getting edematous, face was getting puffy, and reports his scrotum is also swollen. He is not able to fit in his clothes due to his increased weight, reports gaining about 13 pounds within the past few days. So, he presented to the ER for further evaluation. He denies any chest pain, shortness of breath, cough, fever, chills, nausea, vomiting, abdominal tenderness, and dysuria. He reports that he has not changed his eating habit or fluid intake in the past few days. In the ER, BNP was 861. Cardiac enzymes negative. Admitted for further evaluation. PAST MEDICAL HISTORY: 1. Systolic CHF. 2. CAD. 3. High cholesterol. 4. Hypertension. 5. Diabetes. 6. Atrial fibrillation. 7. Tetralogy. 8. Hypothyroidism. 9. CKD. PAST SURGICAL HISTORY: 1. Ablation in 2019. 2. Heart bypass. 3. Tetralogy repair. 4. Cholecystectomy. 5. Tonsillectomy. FAMILY MEDICAL HISTORY: He reports mother and father of lung cancer due to smoking. Mother also had diabetes. SOCIAL HISTORY: Denies any tobacco, alcohol, or illicit drug use. ALLERGIES: HE HAS NO KNOWN DRUG ALLERGIES. REVIEW OF SYSTEMS: GENERAL: Fatigue. HEENT: No head trauma. LUNGS: No shortness of breath or cough. CARDIOVASCULAR: No chest pain or palpitations. GI: No nausea or vomiting. NEURO: No dizziness. No confusion. MUSCULOSKELETAL: Lower extremity edema. SKIN: Dry. PHYSICAL EXAMINATION: VITAL SIGNS: Temperature 97.6, pulse is 66, respirations 16, blood pressure 98/54, pulse ox 96% on room air. GENERAL: Fatigue. HEENT: Normocephalic, atraumatic. NECK: Supple. LUNGS: Decreased breath sounds. CARDIOVASCULAR: Regular rate and rhythm. GI: Soft and nontender. NEUROLOGIC: Alert, awake, and oriented x3. MUSCULOSKELETAL: Moves all extremities. 2+ edema in the lower extremities. SKIN: Dry. PSYCH: Calm. LABORATORY DATA: WBC 6.46, hemoglobin 12.9, hematocrit 41.0, and platelets of 175. Sodium 141, potassium 4.0, BUN is 43, creatinine 2.11. Estimated GFR is 31. Magnesium is 2.3. Bilirubin is 3.5, AST is 33, ALT is 23, alkaline phosphate is 254. CK 127. Troponin is 0.160. BNP is 861.3. Albumin is 3.3. Globulin is 3.6. PT is 20.2. INR is 1.60. APTT is 37.8. UA is negative, unremarkable. IMAGING: Chest x-ray shows cardiomegaly with pulmonary edema unchanged. Abdominal ultrasound shows small volume ascites in the upper abdomen. Normal echogenicity of the liver with normal contour. No masses. Status post cholecystectomy, splenomegaly, and small volume ascites. IMPRESSION: 1. Acute on chronic systolic congestive heart failure. Troponin x3 were negative, with peripheral edema, generalized. He was started on IV Lasix b.i.d. BNP was 860. Cardiology has been consulted. We will resume home medications. 2. Acute kidney injury on chronic kidney disease. We will continue to monitor trend. 3. Hypertension. Resume beta-blockers. 4. High cholesterol. Continue on statin. 5. History of atrial fibrillation. Rate is controlled. We will continue on Savaysa for CVA prophylaxis. 6. Coronary artery disease. Continue home medications. 7. History of diabetes. Sliding scale insulin. 8. History of hypothyroidism. Resume levothyroxine. 9. Elevated bilirubin, 3.5. Abdominal ultrasound showed status post cholecystectomy. LFTs are within normal limits. No ascites or changes in the liver on imaging. He denies any nausea or vomiting. We will monitor for now. 10. Deep vein thrombosis prophylaxis. Continue Savaysa. PLAN: Plan is to continue current treatment of aggressive diuresis. Cardiology, Dr. Lizama, has been consulted for evaluation per patient request. Dictated by ARLYN Cardenas Yiching MD CONSTANTINO Muñiz/AZIZA /[id number]
[2020-01-05 22:48] VITALS: BP 108/63
[2020-01-05] MEDS ORDERED: OMEGA 3-6-9 CO400 MG PO (23:35)
[2020-01-05] MEDS ORDERED: FUROSEMIDE40 MG PO ×2 (23:35)
[2020-01-06] VITALS (9 sets, daily range): BP systolic 101–108; BP diastolic 55–75
[2020-01-06] MEDS: LEVOTHYROXINE SODIUM 50 MCG TAB PO SCH (04:49)
--- NOTE | 2020-01-06 06:33 | NUR ---
SPOKE WITH ME Declan DELGADO CONCERNING HOME MEDICATIONS THAT WERE CONTINUED IN THE er BUT PATIENT TAKES DIFFERENT DOSE. OK TO KEEP THE METOPROLOL AT 25MG INSTEAD OF 100MG AND OK TO CONTINUE OMEGA 3 INSTEAD OF OMEGA 369.
[2020-01-06 06:44] LABS: ALBUMIN 3.2 g/dL (3.5-5.0); ANION GAP 11.7 mmol/L (8-16); CALCIUM 9.2 mg/dL (8.4-10.2); CREATININE, SERUM 2.16 mg/dL (0.72-1.25); POTASSIUM 3.7 mmol/L (3.5-5.1)
[2020-01-06] MEDS: INSULIN REGULAR, HUMAN 100 UNIT/1 ML 3ML VIAL SQ SCH ×5 (07:30→20:55)
[2020-01-06] MEDS: POTASSIUM CHLORIDE 10MEQ EA PO SCH ×2 (07:52→19:17)
[2020-01-06] MEDS: FUROSEMIDE INJ 10 MG/ML 4 ML VIAL IV SCH ×3 (07:52→21:21)
[2020-01-06] MEDS: FERROUS SULFATE 325 MG TAB PO SCH (07:52)
[2020-01-06] MEDS: OMEGA 3 POLYUNSAT FATTY ACIDS 1000 MG SOFTGEL PO SCH (07:53)
[2020-01-06] MEDS: DIGOXIN 0.125 MG TAB PO SCH (07:53)
[2020-01-06] MEDS: METOPROLOL SUCCINATE 25 MG TAB XL PO SCH (07:54)
[2020-01-06] MEDS ORDERED: NON-FORMULARY MEDICATION ([Iron] 65 MG) PO SCH (09:00)
[2020-01-06] MEDS ORDERED: SAVAYSA 30 MG PO SCH (09:00)
--- NOTE | 2020-01-06 09:16 | NUR ---
Nutrition Screen Note RD Recommendation for Physician: -Consider 2 gm Na, 1800 ADA calorie carb controlled diet per MD. Plan of Care: RD following, monitoring for tolerance and adequacy Nutrition reason for involvement: (Diagnosis- CHF) Primary Diagnose(s): CHF PMH: 1. Systolic CHF. 2. CAD. 3. High cholesterol. 4. Hypertension. 5. Diabetes. 6. Atrial fibrillation. 7. Tetralogy. 8. Hypothyroidism. 9. CKD. Ht: 68 in Wt: 168 lb BMI: 25.6 kg/m2 IBW: [address] Assessment: (01/05):69 YOM admitted for CHF with PMH listed above. The pt was seen sitting on his bed, nurse at bedside. Observed breakfast tray at bedside as well. Pt reported his appetite has been fine recently and he has gained weight d/t fluid (about 13 lbs). Pt denied N/V/C/D/chewing or swallowing issues as well as any food allergies. The pt was open to receiving education regarding Low Na Diet, pt verbalized understanding. Pt was started on IV lasix. 2+ edema in the lower extremities per MD note. Chart reviewed. Labs and meds reviewed. Intake- 490 ml, output- 1200 ml. Continue to monitor. Current Diet: ADA diet Malnutrition Evaluation 01/05 The patient does not meet criteria for a specified degree of malnutrition at this time. Will re-evaluate at follow-up as appropriate. Diet Education Needs Assessment: Diet education indicated, pt accepted education. Diet Adequacy: Meeting calorie needs, Meeting protein needs Learner(s): pt Barriers: none Cultural/Language Modifications: none Readiness: acceptance Method: discussion, handout Topics: Low na Diet Understanding/Compliance: verbalized understanding, anticipate good compliance Nutrition Care Level: low Signed: Leti Weaver, RD, LD
[2020-01-06] MEDS: EDOXABAN TOSYLATE 30 MG TABLET PO SCH (12:01)
--- NOTE | 2020-01-06 13:38 | Progress Note ---
DATE: 01/06/2020 DERRICK BARGE OPERATOR: Dr. Lizama with Cardiology. CHIEF COMPLAINT: Generalized edema. SUBJECTIVE: The patient is resting in bed, reports having increased shortness of breath today. Still with significant edema in the lower extremities. No chest pain, fever, nausea, or vomiting. OBJECTIVE: VITAL SIGNS: Temperature 97.4, pulse is 69, respirations 17, blood pressure 105/69, and pulse ox is 99% on 2 L of oxygen. GENERAL: No acute distress, fatigue. HEENT: Normocephalic and atraumatic. NECK: Supple. LUNGS: Decreased breath sounds and with some crackles in the lower lobes. CARDIOVASCULAR: Regular rate and rhythm. GI: Soft and nontender. NEURO: Alert, awake, and oriented x3. MUSCULOSKELETAL: Moves all extremities. 2+ edema in the lower extremities. SKIN: Dry. PSYCH: Calm. LABORATORY DATA: Sodium 140, potassium 3.7, BUN is 41, creatinine 2.16, estimated GFR is 30, total bilirubin 3.3, AST 29, ALT 25, and alkaline phosphate is 230. Chest x-ray, unchanged cardiomegaly and pulmonary edema. IMPRESSION: 1. [id number] systolic congestive heart failure. Troponin x3 negative. BNP 850. Continue with aggressive diuresis. Cardiology has been consulted and resume home medication. 2. Acute kidney injury on chronic kidney disease. We will continue to monitor. Creatinine is 2.16. 3. Hypertension. Stable on beta-blockers. 4. High cholesterol. Continue statin. 5. History of atrial fibrillation. Rate controlled, continue on digoxin, beta blockers, and Savaysa for CVA prophylaxis. 6. Coronary artery disease. Continue home medications. 7. Diabetes. Sliding scale insulin coverage. 8. Elevated bilirubin. Trending down. Ultrasound negative. LFTs within normal limits. We will continue to monitor. 9. Hypothyroidism. Resume levothyroxine. 10. Deep vein thrombosis prophylaxis, on Savaysa. PLAN: Plan is to continue aggressive diuresis, discharge home in 1 to 2 days. Dictated by ARLYN Cardenas Matildaching Micheal Retana MD MY/MODL /[id number]
--- NOTE | 2020-01-06 14:58 | Progress Note ---
DATE: 01/06/2020 Cardiology Progress Note SUBJECTIVE: The patient denies chest pain or shortness of breath. OBJECTIVE: VITAL SIGNS: Temperature 95.5 degrees, pulse 74, respiratory rate 16, blood pressure 104/66, and oxygen saturation 95% on 2 L nasal cannula. GENERAL: Awake, alert, in no acute distress. LUNGS: Clear to auscultation bilaterally. No wheeze or crackles. CARDIOVASCULAR: Normal rate. Regular rhythm. Systolic murmur at the left sternal border. ABDOMEN: Soft and nontender. EXTREMITIES: 2+ pitting edema. CARDIAC MEDICATIONS: Metoprolol succinate 25 mg p.o. daily, fish oil 1000 mg p.o. daily, digoxin 0.125 mg p.o. daily, furosemide 40 mg IV q.12 hours, levothyroxine 50 mcg p.o. daily, and atorvastatin 20 mg p.o. at bedtime. LABORATORY DATA: Sodium 140, potassium 3.7, chloride 103, CO2 29, BUN 41, and creatinine 2.16. Telemetry was personally reviewed and interpreted revealing ventricular paced rhythm. IMPRESSION: 1. Acute on chronic systolic heart failure. 2. History of tetralogy of Fallot status post repair. 3. Scar related ventricular tachycardia status post AICD. 4. Atrial fibrillation. 5. Status post transcatheter aortic valve replacement. 6. Hyperlipidemia. 7. Diabetes mellitus. RECOMMENDATIONS: Continue IV diuretics. We will increase to t.i.d. Continue current cardiac medications. Monitor on telemetry while admitted. He can follow up as an outpatient for his nuclear stress test. No further cardiac evaluation is indicated at this time. Thank you for this consult. We will continue to follow. Debi Raza MD ABS/MODL /[id number]
--- NOTE | 2020-01-06 18:51 | NUR ---
WALKING ROUNDS PERFORMED, RECEIVED PT LAYING SEMI FOWLERS IN BED, AAOX3, RR EVEN AND NON-LABORED, O2 BY NC AT 2L. NO S/SX OF DISTRESS NOTED. LEFT PT LAYING SEMI FOWLERS IN BED, BED IN LOW LOCKED POSITION, SIDE RAILS UPX2, CALL LIGHT AND PHONE WITHIN REACH.
[2020-01-06] MEDS: ATORVASTATIN 20 MG TAB PO SCH (21:21)
[2020-01-07] VITALS (9 sets, daily range): BP systolic 93–124; BP diastolic 56–68
[2020-01-07] MEDS: FUROSEMIDE INJ 10 MG/ML 4 ML VIAL IV SCH ×2 (06:00→14:00)
[2020-01-07] MEDS: LEVOTHYROXINE SODIUM 50 MCG TAB PO SCH (06:00)
[2020-01-07 06:22] LABS: ANION GAP 11.9 mmol/L (8-16); CALCIUM 9.3 mg/dL (8.4-10.2); CREATININE, SERUM 1.92 mg/dL (0.72-1.25); POTASSIUM 3.9 mmol/L (3.5-5.1)
[2020-01-07] MEDS: INSULIN REGULAR, HUMAN 100 UNIT/1 ML 3ML VIAL SQ SCH ×4 (07:30→21:00)
[2020-01-07] MEDS: FERROUS SULFATE 325 MG TAB PO SCH (09:40)
[2020-01-07] MEDS: POTASSIUM CHLORIDE 10MEQ EA PO SCH ×2 (09:40→17:15)
[2020-01-07] MEDS: DIGOXIN 0.125 MG TAB PO SCH (09:41)
[2020-01-07] MEDS: OMEGA 3 POLYUNSAT FATTY ACIDS 1000 MG SOFTGEL PO SCH (09:41)
[2020-01-07] MEDS: EDOXABAN TOSYLATE 30 MG TABLET PO SCH (09:42)
[2020-01-07] MEDS: METOPROLOL SUCCINATE 25 MG TAB XL PO SCH (09:43)
--- NOTE | 2020-01-07 12:52 | Progress Note ---
DATE: 01/07/2020 GUILLOTINE OPERATOR: Dr. Lizama with Cardiology. CHIEF COMPLAINT: Generalized edema. SUBJECTIVE: The patient is resting in bed with no acute distress, reports lower extremity edema and scrotum edema is improving. Urine output good. No chest pain, fever, nausea, or vomiting. OBJECTIVE: VITAL SIGNS: Temperature 97.0, pulse is 68, respirations 18, blood pressure 111/67, and pulse ox is 97% on 2 L of nasal cannula. GENERAL: No acute distress, fatigued. HEENT: Normocephalic and atraumatic. NECK: Supple. LUNGS: Decreased breath sounds. CARDIOVASCULAR: Regular rate and rhythm. GI: Soft and nontender. NEURO: Alert, awake, and oriented x3. MUSCULOSKELETAL: Moves all extremities. Bilateral lower extremity edema improving. SKIN: Dry. PSYCH: Calm. LABORATORY DATA: Sodium 141, potassium 3.9, CO2 29, creatinine 1.92, BUN is 39, estimated GFR 35, blood glucose 55, and calcium 9.3. IMPRESSION: 1. [id number] systolic congestive heart failure with exacerbation. Troponin x3 negative. Continue with aggressive diuresis. Cardiology has been consulted. 2. Acute kidney injury on chronic kidney disease. Continue to monitor kidney function, creatinine today is 1.9. 3. Hypertension. Stable on beta blockers. 4. Hyperlipidemia. On statin. 5. History of atrial fibrillation. Rate controlled on beta blockers and digoxin. On Savaysa for CVA prophylaxis. 6. History of coronary artery disease. Continue home medication. 7. History of diabetes. Continue sliding scale insulin coverage. 8. Elevated bilirubin. Trending down. Ultrasound negative and LFTs within normal limits. 9. Hypothyroidism. On levothyroxine. 10. Deep vein thrombosis prophylaxis. SCDs. PLAN: To continue aggressive diuresis. Anticipate discharge home tomorrow. Dictated by ARLYN Cardenas Jeniffer Retana MD MY/MODL /[id number] Seen and examined. Agree with the findings and plan as documented by ARLYN Shine. PIERCED
[2020-01-07] MEDS: FUROSEMIDE INJ 10 MG/ML 2 ML VIAL IV SCH (21:22)
[2020-01-07] MEDS: ATORVASTATIN 20 MG TAB PO SCH (21:22)
[2020-01-08 00:15] VITALS: BP 98/60
[2020-01-08 05:30] VITALS: BP 98/61
[2020-01-08] MEDS: LEVOTHYROXINE SODIUM 50 MCG TAB PO SCH (06:11)
[2020-01-08] MEDS: FUROSEMIDE INJ 10 MG/ML 2 ML VIAL IV SCH (06:11)
--- NOTE | 2020-01-08 06:11 | NUR ---
bp rechecked 159/59 mmhg, pr 74 b/min. asymptomatic.
[2020-01-08 06:23] LABS: BASOPHILS % 0.4 % (0.0-1.0); EOSINOPHILS # (AUTO) 0.2 (0.0-0.4); EOSINOPHILS % 3.4 % (0.0-6.0); HEMATOCRIT 37.9 % (38.2-49.6); HEMOGLOBIN 11.8 g/dL (14.0-18.0); LYMPHOCYTES % 18.1 % (18.0-39.1); MEAN CORPUSCULAR HEMOGLOBIN 29.4 pg (28-32); MEAN CORPUSCULAR HGB CONC 31.1 g/dL (31-35); MEAN CORPUSCULAR VOLUME 94.5 fL (81-99); MONOCYTES # (AUTO) 0.6 (0.2-0.8); MONOCYTES % 10.9 % (4.4-11.3); NEUTROPHILS # (AUTO) 3.7 (2.1-6.9); NEUTROPHILS % 66.8 % (38.7-80.0); PLATELET COUNT 136 x10e3/uL (140-360); RED BLOOD COUNT 4.01 x10e6/uL (4.3-5.7); RED CELL DISTRIBUTION WIDTH 14.6 % (11.7-14.4)
[2020-01-08 06:45] LABS: ALBUMIN 3.3 g/dL (3.5-5.0); ANION GAP 13.7 mmol/L (8-16); BILIRUBIN,DIRECT 2.5 mg/dL (0.0-0.5); CALCIUM 9.3 mg/dL (8.4-10.2); CREATININE, SERUM 1.91 mg/dL (0.72-1.25); POTASSIUM 3.7 mmol/L (3.5-5.1)
[2020-01-08] MEDS: INSULIN REGULAR, HUMAN 100 UNIT/1 ML 3ML VIAL SQ SCH ×2 (07:30→12:19)
[2020-01-08 07:54] VITALS: BP 94/52
[2020-01-08 08:04] VITALS: BP 94/52
[2020-01-08] MEDS: DIGOXIN 0.125 MG TAB PO SCH (08:52)
[2020-01-08] MEDS: OMEGA 3 POLYUNSAT FATTY ACIDS 1000 MG SOFTGEL PO SCH (08:52)
[2020-01-08] MEDS: POTASSIUM CHLORIDE 10MEQ EA PO SCH (08:52)
[2020-01-08] MEDS: FERROUS SULFATE 325 MG TAB PO SCH (08:52)
[2020-01-08] MEDS: EDOXABAN TOSYLATE 30 MG TABLET PO SCH (08:52)
--- NOTE | 2020-01-08 10:10 | Diagnostic Imaging Report ---
EXAMINATION: CHEST SINGLE (PORTABLE) INDICATION: Pulmonary edema COMPARISON: Chest radiograph 01/05/2020. FINDINGS: LINES/TUBES:Left chest AICD. EKG leads overlie the chest. LUNGS:The lungs are moderately inflated. There is perihilar fullness and indistinctness of the pulmonary vasculature. Patchy opacities in the bilateral mid and lower lung zones. PLEURA: Small bilateral pleural effusions. No pneumothorax. MEDIASTINUM:Cardiomediastinal silhouette is stably enlarged. Vascular stent. BONES/SOFT TISSUES:No acute osseous injury. ABDOMEN:No free air under the diaphragm. IMPRESSION: Unchanged cardiomegaly and pulmonary edema. Small bilateral pleural effusions. Signed by: Dr. Antoinette Gray MD on 01/08/2020 10:08 AM
--- NOTE | 2020-01-08 11:42 | NUR ---
Dr.Patel Arce aware of BP. See orders
[2020-01-08 12:00] VITALS: BP 90/54
[2020-01-08] MEDS ORDERED: METOPROLOL SUCCINATE 25 MG TAB XL PO SCH (12:00)
[2020-01-08 12:28] VITALS: BP 102/56
--- NOTE | 2020-01-08 12:28 | NUR ---
Left AC IV discontinued. No signs of infiltration noted. 2x2 gauze and tape placed. Taken to personal car. Accompanied by family member. AAOx3 to time, person, place, situation. Respirations even and unlabored. Denies pain. Discharge instructions and all personal belongings taken with patient. No rx available at this time.
--- NOTE | 2020-01-08 15:12 | Progress Note ---
DATE: 01/08/2020 Cardiology Progress Note SUBJECTIVE: No major events overnight. Feels much better today. OBJECTIVE: VITAL SIGNS: Temperature afebrile, pulse 75, respiratory rate 18, blood pressure 98/61, saturating 96% on room air. GENERAL: Well developed, well nourished, no acute distress. CARDIOVASCULAR: Regular rate and rhythm. A 2/6 systolic murmur at right upper sternal border. LUNGS: Clear to auscultation bilaterally. ABDOMEN: Soft, nontender and nondistended. NEURO AND PSYCH: Alert and oriented to person, place, and time. Normal affect. EXTREMITIES: Warm, well perfused. 1+ edema to mid tomlinson bilaterally. INPATIENT MEDICATIONS: Reviewed. LABORATORY DATA: Reviewed. TELEMETRY DATA: Reviewed, shows normal sinus rhythm, paced. ASSESSMENT: 1. Status post tetralogy of Fallot repair as a child. 2. Status post ventricular septal defect repair as an adult. 3. Status post Halie valve placement for pulmonic insufficiency. 4. Ventricular tachycardia, status post ablation and automatic implantable cardioverter defibrillator placement. 5. History of atrial fibrillation. 6. Hypertension. 7. Hyperlipidemia. 8. Diabetes. PLAN: Volume status is improved significantly. The patient feels much better, close to his baseline. Okay to be discharged home today with the same cardiovascular regimen. Discussed daily weights and up titrating Lasix as needed. He will be seen in the office one week post discharge. Thank you for this consult. We will continue to follow. MD KRISH Longoria/AZIZA /[id number]
--- NOTE | 2020-01-08 15:22 | Progress Note ---
DATE: 01/07/2020 Cardiology Progress Note SUBJECTIVE: No major events overnight. OBJECTIVE: VITAL SIGNS: Temperature afebrile, pulse 73, respiratory rate 18, blood pressure 113/64, saturating 97% on room air. GENERAL: Well developed, well nourished, no acute distress. CARDIOVASCULAR: Regular rate and rhythm. A 2/6 systolic murmur at right upper sternal border. LUNGS: Clear to auscultation bilaterally. ABDOMEN: Soft, nontender, nondistended. NEURO AND PSYCH: Alert and oriented to person, place, and time. Normal affect. INPATIENT MEDICATIONS: Reviewed. LABORATORY DATA: Reviewed. TELEMETRY DATA: Reviewed, shows normal sinus rhythm. ASSESSMENT: 1. Acute on chronic systolic heart failure exacerbation. 2. History of tetralogy of Fallot status post repair. 3. Status post ventricular septal defect repair. 4. Status post left anterior descending artery pulmonic valve placement. 5. History of ventricular tachycardia, status post ablation and implantable cardioverter-defibrillator placement. 6. History of atrial fibrillation. 7. Hyperlipidemia. 8. Diabetes. RECOMMENDATIONS: Volume status seems to be improving. Continue one more day of IV diuretic. Okay to change to p.o. diuretics and discharge likely tomorrow. Continue home cardiovascular medications otherwise. Thank you for this consult. We will continue to follow. MD KRISH Longoria/AZIZA /[id number]
--- NOTE | 2020-01-09 02:12 | Discharge Summary ---
FINAL DIAGNOSIS: Acute systolic congestive heart failure. SECONDARY DIAGNOSES: 1. Hypertension. 2. Hyperlipidemia. 3. Possible chronic atrial fibrillation, on oral anticoagulation. 4. Stage 3 chronic kidney disease due to diabetes, stable. 5. Hypothyroidism. 6. Elevated total bilirubin of unclear etiology. 7. Previous cholecystectomy. 8. Splenomegaly. 9. Previous transcatheter aortic valve replacement. 10. AICD. 11. Previous tetralogy of Fallot repair. CONSULTANTS: Dr. Raza, Cardiology. PROCEDURE/STUDIES PERFORMED: Abdominal ultrasound with normal echogenicity of the liver with normal contour. HISTORY: Per [facility] and [facility]. HOSPITAL COURSE: The patient was aggressively diuresed with IV Lasix. His creatinine remained stable. His total bilirubin also remained stable at 3. There is a possibility that this could be due to hepatic congestion; however, his AST and ALT are normal. His albumin is 3.3, which makes cirrhosis less likely. Also, his ultrasound was okay. The patient's breathing is much better. I have discussed with Dr. Pena, the covering tint layer. I will discharge the patient today. It took 35 minutes total to discharge this patient. I have updated his family member at the bedside as well. The patient will follow up with Dr. Lizama in 1 week. CONDITION ON DISCHARGE: Improved. DISCHARGE MEDICATIONS: Please see medication reconciliation form. Of note, no ARB or no angiotensin receptor tania nor GINNA inhibitors due to his CKD and also lowish blood pressure. MD MARÍA Stuart/AZIZA /[id number]
== END 2020-01-08 12:28 | disposition home or self-care (01) | DRG 291 ==
LOC: ER 18:15 → ERHOLD 20:52 → MED/SURG 01-05 21:10
PROVIDERS: ADMIT Internal Medicine; ATTEND Internal Medicine
DX: I13.0 Hypertensive heart and chronic kidney disease with heart failure and stage 1 through stage 4 chronic kidney disease, or unspecified chronic kidney disease (principal); I50.23 Acute on chronic systolic (congestive) heart failure; Q21.3 Tetralogy of Fallot; N17.9 Acute kidney failure, unspecified; E78.5 Hyperlipidemia, unspecified; I48.91 Unspecified atrial fibrillation; E11.22 Type 2 diabetes mellitus with diabetic chronic kidney disease; Z95.1 Presence of aortocoronary bypass graft; Z95.810 Presence of automatic (implantable) cardiac defibrillator; Z82.49 Family history of ischemic heart disease and other diseases of the circulatory system; Z83.3 Family history of diabetes mellitus; I25.10 Atherosclerotic heart disease of native coronary artery without angina pectoris; E03.9 Hypothyroidism, unspecified; E78.00 Pure hypercholesterolemia, unspecified; Z90.49 Acquired absence of other specified parts of digestive tract; Z95.2 Presence of prosthetic heart valve; N18.3 Chronic kidney disease, stage 3 (moderate); E80.6 Other disorders of bilirubin metabolism
CPT/HCPCS: 36415; 71045; 76700; 80048; 80053; 80076; 81001; 82550; 82553; 82948; 83735; 83880; 84484; 85025; 85610; 85730; 93005; 96372; 99284; J1817; J1940